=== PATIENT | male | born 1985 | race Caucasian/White ===

== ENCOUNTER 2017-12-19 19:15 | Emergency (ER) | payer OTHER ==
[~2017-12-19] VITALS: Ht 188 cm; Wt 104.3 kg
[2017-12-19] MEDS ORDERED: LEXAPRO (19:27)
[2017-12-19] MEDS ORDERED: WELLBUTRIN (19:28)
[2017-12-19] MEDS ORDERED: CENTANY30 GM TOP (19:39)
[2017-12-19] MEDS ORDERED: AUGMENTIN 875-1 EACH PO (19:39)
[2017-12-19 20:00] VITALS: BP 133/70
== END 2017-12-19 20:00 | disposition home or self-care (01) ==
LOC: M.ERS 19:15
DX: S61.451A Open bite of right hand, initial encounter (principal); W54.0XXA Bitten by dog, initial encounter; Y93.89 Activity, other specified; Y92.89 Other specified places as the place of occurrence of the external cause; Y99.8 Other external cause status